=== PATIENT | male | born 1955 | race Caucasian/White ===

== ENCOUNTER 2021-04-22 14:10 | Emergency (ER) | payer BC, MEDICARE ==
[2021-04-22] MEDS ORDERED: Sodium Chloride 0.9% 10 ML Syringe FLUSH PRN (14:27)
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
--- NOTE | 2021-04-22 15:01 | CRLCT ---
For Patients: As a result of the Cures Act, medical imaging exams and procedure reports are released immediately into your electronic medical record. You may view this report before your referring provider. If you have questions, please contact your health care provider. INDICATION: Syncope and vomiting. COMPARISON: None. TECHNIQUE: Noncontrast CT head. FINDINGS: Mild generalized volume loss. Small focal low attenuation change of the right basal ganglia consistent with an old lacunar infarct. No acute intracranial hemorrhage, acute infarct, mass effect, or fracture. No midline shift. No abnormal ventricular dilatation. Normal calvarium and skull base. Visualized paranasal sinuses and mastoid air cells are clear. Normal orbits bilaterally. IMPRESSION: 1. No acute intracranial abnormality. 2. Mild generalized volume loss. Small old lacunar infarct of right basal ganglia Please note that all CT scans at this facility use dose modulation, iterative reconstruction, and/or weight-based dosing when appropriate to reduce radiation dose to as low as reasonably achievable. Dictated by Cristopher Cano MD @ 04/22/2021 3:00:[address] Cristopher Cano @ Apr 22 2021 3:00PM
[2021-04-22] MEDS ORDERED: Sodium Chloride 0.9% 1,000 ML IV SCH (16:15)
[2021-04-22 17:40] VITALS: PULSE 58
[2021-04-22 18:06] VITALS: BP 147/84
--- NOTE | 2021-04-24 09:49 | CR ---
CHEST: Portable 04/22/2021 at 3:13 PM CLINICAL HISTORY:SOB COMPARISON:2014 FINDINGS: Heart is enlarged. Patient has a prosthetic mitral valve. Pulmonary vascularity is normal. No infiltrate is seen. There are no effusions Impression: Previous mitral valve replacement Cardiomegaly No acute cardiopulmonary process
== END 2021-04-22 19:42 ==
LOC: JP.ED 14:10
DX: R41.82 Altered mental status, unspecified (principal); R41.3 Other amnesia; R00.1 Bradycardia, unspecified; E78.00 Pure hypercholesterolemia, unspecified; I10 Essential (primary) hypertension; Z79.899 Other long term (current) drug therapy; Z79.82 Long term (current) use of aspirin; Z88.8 Allergy status to other drugs, medicaments and biological substances; Z20.822 Contact with and (suspected) exposure to COVID-19
CPT/HCPCS: 36415; 70450; 71045; 80053; 80305; 80307; 81001; 82140; 82947; 83880; 84443; 84484; 85025; 85610; 85730; 86140; 93005; 99285; J7030; U0002

== ENCOUNTER 2021-06-26 13:46 | Emergency (ER) | payer MEDICARE ==
--- NOTE | 2021-06-26 14:52 | EDM.PDOC ---
ED HPI GENERAL MEDICAL PROBLEM - General Chief Complaint: Cardiovascular Problem Stated Complaint: IRREGULAR HEART Time Seen by Provider: 06/26/21 14:30 Source of Information: Reports: Patient, Family History Limitations: Reports: No Limitations - History of Present Illness INITIAL COMMENTS - FREE TEXT/NARRATIVE: 66-year-old male went to cardiac rehab and was found to be in atrial fibrillation with RVR so was sent to the emergency room. Patient recently had valvular surgery at [facility] in [place], he is on a classroom monitor because his recent postoperative follow-up he was in atrial flutter. He is completely asymptomatic. He was on metoprolol prior to discharge, that was stopped. Denies shortness of breath or nausea or vomiting. Onset: Unknown/Unsure Associated Symptoms: Reports: No Other Symptoms - Related Data Allergies Allergy/AdvReac Type Severity Reaction Status Date / Time ibuprofen Allergy Hives Verified 06/26/21 14:06 Home Meds: Home Meds allopurinoL [Allopurinol] 300 mg PO BEDTIME 11/10/14 [History] atorvaSTATin [Lipitor] 40 mg PO BEDTIME 11/10/14 [History] Aspirin 1 tab PO DAILY 04/22/21 [History] Furosemide [Lasix] 20 mg PO DAILY PRN 04/22/21 [History] Tamsulosin [Flomax] 1 tab PO DAILY 04/22/21 [History] Amoxicillin 500 mg PO ASDIRECTED PRN 06/26/21 [History] Ascorbic Acid [Vitamin C] 1,000 mg PO DAILY 06/26/21 [History] Calcium Carb, Citrate/Vit D3 [Calcium + D3 ER Tablet] 1 tab PO DAILY 06/26/21 [History] Potassium Chloride 10 meq PO DAILY 06/26/21 [History] Rivaroxaban [Xarelto] 20 mg PO DAILY 06/26/21 [History] amLODIPine [Norvasc] 10 mg PO DAILY 06/26/21 [History] Past Medical History - Past Health History Medical/Surgical History: Denies Medical/Surgical History HEENT History: Reports: Hard of Hearing Cardiovascular History: Reports: High Cholesterol, Hypertension, Other (See Below) Respiratory History: Reports: Asthma, Sleep Apnea Gastrointestinal History: Reports: Colon Polyp, GERD, Other (See Below) Other Gastrointestinal History: umbilical hernia Genitourinary History: Reports: None Musculoskeletal History: Reports: Other (See Below) Other Musculoskeletal History: ankle fracture left Neurological History: Reports: Other (See Below) - Past Surgical History HEENT Surgical History: Reports: None Cardiovascular Surgical History: Reports: Valve Replacement Respiratory Surgical History: Reports: None GI Surgical History: Reports: Colonoscopy, EGD Male Surgical History: Reports: Vasectomy, Other (See Below) Other Male Surgeries/Procedures: erectile dysfunction Musculoskeletal Surgical History: Reports: None Social & Family History - Tobacco Use Tobacco Use Status *Q: Never Tobacco User - Caffeine Use Caffeine Use: Reports: Coffee - Alcohol Use Number of Drinks Per Day: 1 - Recreational Drug Use Recreational Drug Use: No ED ROS GENERAL - Review of Systems Review Of Systems: See Below Constitutional: Denies: Fever, Chills, Malaise HEENT: Reports: No Symptoms Respiratory: Denies: Shortness of Breath Cardiovascular: Denies: Chest Pain, Palpitations GI/Abdominal: Reports: No Symptoms Skin: Reports: No Symptoms Neurological: Denies: Dizziness, Headache Psychiatric: Reports: No Symptoms ED EXAM, GENERAL - Physical Exam Exam: See Below Exam Limited By: No Limitations General Appearance: Alert, No Apparent Distress Eye Exam: Bilateral Eye: Normal Inspection Respiratory/Chest: No Respiratory Distress Cardiovascular: Tachycardia, Irregularly Irregular GI/Abdominal: Soft, Non-Tender Neurological: Alert, Oriented Psychiatric: Normal Affect, Normal Mood Skin Exam: Warm, Dry Course - Vital Signs Last Recorded V/S: Last Vital Signs Temp 97.5 F 06/26/21 14:05 Pulse 105 H 06/26/21 14:58 Resp 13 06/26/21 14:58 BP 119/84 06/26/21 14:58 Pulse Ox 97 06/26/21 14:58 - Re-Assessments/Exams Free Text/Narrative Re-Assessment/Exam: 06/26/21 17:02 Placed on a classroom monitor and indeed he was in atrial fibrillation with an RVR anywhere from 110-120. 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 Patient was comfortable with this plan. He will continue on his anticoagulation. If his rate is controlled, he can continue participating in cardiac rehab and has a follow-up appointment in [place] next week. Departure - Departure Time of Disposition: 14:55 Disposition: Home, Self-Care 01 Clinical Impression: Atrial fibrillation with RVR Instructions: Atrial Fibrillation, [id number] Referrals: PCP,None [Primary Care Provider] - Forms: ED Department Discharge Care Plan Goals: Continue your current medications, and add 25 mg of metoprolol twice daily. You can continue cardiac rehab as long as your rate is controlled. Recheck as scheduled in the future, otherwise return if worsening such as increasing shortness of breath, chest pain, or significant fluttering or palpitations that is persistent. Sepsis Event Note (ED) - Evaluation Sepsis Screening Result: No Definite Risk - Focused Exam Vital Signs: Vital Signs Temp Pulse Resp BP Pulse Ox 06/26/21 14:58 105 H 13 119/84 97 06/26/21 14:05 97.5 F 116 H 12 133/92 H 97
[2021-06-26 15:01] VITALS: BP 119/84; PULSE 105
== END 2021-06-26 15:09 | disposition home or self-care (01) ==
LOC: JP.ED 13:46
DX: I48.91 Unspecified atrial fibrillation (principal); E78.00 Pure hypercholesterolemia, unspecified; I10 Essential (primary) hypertension; J45.909 Unspecified asthma, uncomplicated; Z88.6 Allergy status to analgesic agent; Z79.82 Long term (current) use of aspirin; Z79.01 Long term (current) use of anticoagulants; Z79.899 Other long term (current) drug therapy
CPT/HCPCS: 99284

== ENCOUNTER 2022-08-20 06:56 | Day surgery (SDC) | payer MEDICARE ==
[2022-08-20] MEDS ORDERED: Lactated Ringers 500 ML IV SCH (07:30)
[2022-08-20] MEDS ORDERED: Lactated Ringers 1,000 ML IV SCH (07:30)
[2022-08-20] MEDS ORDERED: Propofol 200 MG/20 ML SDV ONE (07:45)
[2022-08-20] MEDS ORDERED: Midazolam 1 MG/ML 2 ML SDV ONE (07:45)
[2022-08-20] MEDS ORDERED: fentaNYL 50 MCG/ML SDV ONE (07:45)
[2022-08-20] MEDS ORDERED: Ampicillin/Sulbactam Na 3 GM in Sodium Chloride 0.9% 100 ML IV ONE (08:30)
[2022-08-20 10:19] VITALS: BP 139/66; PULSE 66
== END 2022-08-20 10:25 | disposition home or self-care (01) ==
LOC: JP.SDS 06:56
PROVIDERS: ATTEND Student in an Organized Health Care Education/Training Program
DX: Z12.11 Encounter for screening for malignant neoplasm of colon (principal); K57.30 Diverticulosis of large intestine without perforation or abscess without bleeding; I10 Essential (primary) hypertension; E78.5 Hyperlipidemia, unspecified; E66.9 Obesity, unspecified; G47.33 Obstructive sleep apnea (adult) (pediatric); Z68.41 Body mass index [BMI] 40.0-44.9, adult; Z79.899 Other long term (current) drug therapy; Z80.0 Family history of malignant neoplasm of digestive organs; Z88.6 Allergy status to analgesic agent
CPT/HCPCS: 45330; J0295; J2250; J2704; J3010; J7120

== ENCOUNTER 2022-08-21 08:52 | Day surgery (SDC) | payer MEDICARE ==
[2022-08-21] MEDS ORDERED: fentaNYL 50 MCG/ML SDV ONE (09:19)
[2022-08-21] MEDS ORDERED: Propofol 200 MG/20 ML SDV ONE ×4 (09:19→10:55)
[2022-08-21] MEDS ORDERED: Midazolam 1 MG/ML 2 ML SDV ONE (09:19)
[2022-08-21] MEDS ORDERED: Lactated Ringers 1,000 ML IV SCH (09:30)
[2022-08-21 12:09] VITALS: BP 132/83; PULSE 66
== END 2022-08-21 12:30 | disposition home or self-care (01) ==
LOC: JP.SDS 08:52
PROVIDERS: ATTEND Student in an Organized Health Care Education/Training Program
DX: Z12.11 Encounter for screening for malignant neoplasm of colon (principal); D12.2 Benign neoplasm of ascending colon; D12.0 Benign neoplasm of cecum; D12.3 Benign neoplasm of transverse colon; D12.5 Benign neoplasm of sigmoid colon; K57.30 Diverticulosis of large intestine without perforation or abscess without bleeding; I10 Essential (primary) hypertension; G47.33 Obstructive sleep apnea (adult) (pediatric); I25.10 Atherosclerotic heart disease of native coronary artery without angina pectoris; K42.9 Umbilical hernia without obstruction or gangrene; E66.9 Obesity, unspecified; M19.90 Unspecified osteoarthritis, unspecified site; Z68.41 Body mass index [BMI] 40.0-44.9, adult; Z88.6 Allergy status to analgesic agent; Z79.899 Other long term (current) drug therapy
CPT/HCPCS: 45385; 88305; 88341; 88342; J0690; J2250; J2704; J3010; J3490; J7120

== ENCOUNTER 2023-07-30 18:16 | Emergency (ER) | payer MEDICARE ==
[2023-07-30 18:43] VITALS: BP 150/86; PULSE 79
[2023-07-30] MEDS ORDERED: Lidocaine 1% with EPINEPHrine 1:100,000 50 ML MDV SUBCUT ONE (19:16)
[2023-07-30] MEDS ORDERED: Bacitracin Oint 1 GM U/D Packet TOP ONE (19:16)
== END 2023-07-30 20:22 | disposition home or self-care (01) ==
LOC: JP.ED 18:16
DX: S61.412A Laceration without foreign body of left hand, initial encounter (principal); I10 Essential (primary) hypertension; E78.00 Pure hypercholesterolemia, unspecified; K21.9 Gastro-esophageal reflux disease without esophagitis; E66.9 Obesity, unspecified; Z68.41 Body mass index [BMI] 40.0-44.9, adult; Z86.16 Personal history of COVID-19; Z79.82 Long term (current) use of aspirin; Z79.01 Long term (current) use of anticoagulants; Z79.899 Other long term (current) drug therapy; Z88.6 Allergy status to analgesic agent; W29.3XXA Contact with powered garden and outdoor hand tools and machinery, initial encounter
CPT/HCPCS: 12001; 99282

== ENCOUNTER 2023-08-30 08:23 | Day surgery (SDC) | payer MEDICARE ==
[~2023-08-30 08:23] MED LIST: Lactated Ringers 1,000 ML IV SCH
[2023-08-30] MEDS ORDERED: Propofol 200 MG/20 ML SDV ONE (09:55)
[2023-08-30] MEDS ORDERED: fentaNYL 50 MCG/ML SDV ONE (09:55)
[2023-08-30] MEDS ORDERED: Midazolam 1 MG/ML 2 ML SDV ONE (09:55)
[2023-08-30 13:22] VITALS: BP 154/80; PULSE 64
== END 2023-08-30 13:35 | disposition home or self-care (01) ==
LOC: JP.SDS 08:23
PROVIDERS: ATTEND Student in an Organized Health Care Education/Training Program
DX: K63.5 Polyp of colon (principal); I10 Essential (primary) hypertension; I25.10 Atherosclerotic heart disease of native coronary artery without angina pectoris; Q43.8 Other specified congenital malformations of intestine; I48.91 Unspecified atrial fibrillation; G47.33 Obstructive sleep apnea (adult) (pediatric); Z86.010 Personal history of colon polyps; Z88.2 Allergy status to sulfonamides
CPT/HCPCS: J2250; J2704; J3010; J7120

== ENCOUNTER 2023-09-04 06:32 | Day surgery (SDC) | payer MEDICARE ==
[2023-09-04] MEDS ORDERED: Propofol 200 MG/20 ML SDV ONE ×3 (07:28→09:07)
[2023-09-04] MEDS ORDERED: fentaNYL 100 MCG/2 ML SDV ONE (07:28)
[2023-09-04] MEDS ORDERED: Lactated Ringers 1,000 ML IV SCH (07:45)
[2023-09-04 10:33] VITALS: BP 143/89; PULSE 65
== END 2023-09-04 10:35 | disposition home or self-care (01) ==
LOC: JP.SDS 06:32
PROVIDERS: ATTEND Student in an Organized Health Care Education/Training Program
DX: Z12.11 Encounter for screening for malignant neoplasm of colon (principal); D12.0 Benign neoplasm of cecum; D12.3 Benign neoplasm of transverse colon; K63.5 Polyp of colon; K57.30 Diverticulosis of large intestine without perforation or abscess without bleeding; G47.33 Obstructive sleep apnea (adult) (pediatric); I10 Essential (primary) hypertension; E66.9 Obesity, unspecified; Z68.41 Body mass index [BMI] 40.0-44.9, adult; Z88.8 Allergy status to other drugs, medicaments and biological substances
CPT/HCPCS: 45380; 45382; J2704; J3010; J7120; 88305

== ENCOUNTER 2024-01-09 00:23 | Emergency (ER) | payer MEDICARE ==
[2024-01-09 00:36] VITALS: BP 152/70; PULSE 80
[2024-01-09 01:00] LABS: BASOPHILS ABSOLUTE AUTO 0.02 K/uL (0.00-0.10); BASOPHILS PERCENT AUTO 0.3 % (0.1-1.3); EOSINOPHILS ABSOLUTE AUTO 0.18 K/uL (0.00-0.40); EOSINOPHILS PERCENT AUTO 2.8 % (0.0-5.4); HEMATOCRIT 26.1 % (38.4-49.7); HEMOGLOBIN 8.4 g/dL (12.9-16.9); IMMATURE GRAN ABSOLUTE AUTO 0.03 K/uL (0.00-0.23); IMMATURE GRAN PERCENT AUTO 0.5 % (0.0-0.7); LYMPHOCYTES ABSOLUTE AUTO 1.68 K/uL (0.8-3.3); MEAN CORPUSCULAR HEMOGLOBIN 26.7 pg (31.6-35.5); MEAN CORPUSCULAR HGB CONC 32.2 g/dL (31.6-35.5); MEAN CORPUSCULAR VOLUME 82.9 fL (81.4-99.0); MONOCYTES ABSOLUTE AUTO 0.51 K/uL (0.20-0.90); MONOCYTES PERCENT AUTO 7.9 % (3.3-12.6); NEUTROPHILS ABSOLUTE AUTO 4.05 K/uL (1.0-7.6); NEUTROPHILS PERCENT AUTO 62.5 % (40.0-78.1); PLATELET COUNT,PLT 219 K/uL (130-375); RED BLOOD CELL COUNT 3.15 M/uL (4.14-5.76); WHITE BLOOD CELL COUNT,WBC 6.5 K/uL (3.2-11.0)
== END 2024-01-09 01:25 | disposition home or self-care (01) ==
LOC: JP.ED 00:23
DX: M96.840 Postprocedural hematoma of a musculoskeletal structure following a musculoskeletal system procedure (principal); I10 Essential (primary) hypertension; I25.2 Old myocardial infarction; E66.9 Obesity, unspecified; Z88.6 Allergy status to analgesic agent; Z79.899 Other long term (current) drug therapy; Z79.01 Long term (current) use of anticoagulants; Z86.19 Personal history of other infectious and parasitic diseases; Z86.16 Personal history of COVID-19; Z68.37 Body mass index [BMI] 37.0-37.9, adult
CPT/HCPCS: 36415; 85025; 99283

== ENCOUNTER 2024-08-13 06:43 | Day surgery (SDC) | payer MEDICARE ==
[2024-08-13] MEDS ORDERED: fentaNYL 50 MCG/ML SDV ONE (07:26)
[2024-08-13] MEDS ORDERED: Midazolam 1 MG/ML 2 ML SDV ONE (07:26)
[2024-08-13] MEDS ORDERED: Propofol 200 MG/20 ML SDV ONE ×2 (07:28→08:29)
[2024-08-13] MEDS: Lactated Ringers 1,000 ML IV SCH (07:34)
[2024-08-13 09:34] VITALS: PULSE 62
[2024-08-13 09:45] VITALS: BP 153/80
== END 2024-08-13 09:56 | disposition home or self-care (01) ==
LOC: JP.SDS 06:43
PROVIDERS: ATTEND Surgery
DX: Z12.11 Encounter for screening for malignant neoplasm of colon (principal); K63.5 Polyp of colon; K57.30 Diverticulosis of large intestine without perforation or abscess without bleeding; E78.5 Hyperlipidemia, unspecified; G47.33 Obstructive sleep apnea (adult) (pediatric); I12.9 Hypertensive chronic kidney disease with stage 1 through stage 4 chronic kidney disease, or unspecified chronic kidney disease; N18.30 Chronic kidney disease, stage 3 unspecified
CPT/HCPCS: 45385; J2250; J2704; J3010; J7120